=== PATIENT | female | born 1970 | race Caucasian/White ===

== ENCOUNTER 2017-08-16 11:34 | Emergency (ER) | payer BC ==
[2017-08-16 11:43] VITALS: TEMP 98.6
--- NOTE | 2017-08-16 12:54 | EDPHY ---
H & P Time Seen by Provider: 08/16/17 12:53 HPI/ROS: CHIEF COMPLAINT: Heavy period HISTORY OF PRESENT ILLNESS: This patient is a 47 year old female complaining of abnormally heavy menstrual bleeding beginning yesterday. She had an IUD in place for the past 10 years, which was recently removed 07/25/17. She had a two week long period after IUD removal and is now on low dose oral contraceptives. She has felt well and her menstruation started as expected with her placebo pills. Yesterday, she had increased menstrual bleeding. She has used one box of super tampons today since 9:00am. She is primarily concerned regarding the appearance of large clots and has never had heavy bleeding like today in the past. She denies any dizziness or weakness. No chest pain, shortness of breath, headache, or other associated symptoms. REVIEW OF SYSTEMS: A 10 point review of systems was performed and is negative with the exception of the elements mentioned in the history of present illness. Past Medical/Surgical History: Hypothyroid. Takes oral contraceptives. Social History: Just moved to [place] from [place]. Has three children. Nonsmoker. Smoking Status: Never smoked Physical Exam: General Appearance: Alert, pleasant Eyes: Pupils equal and round, no conjunctival pallor ENT, Mouth: Mucous membranes moist Neck: Normal inspection Respiratory: Lungs are clear to auscultation Cardiovascular: Regular rate and rhythm Gastrointestinal: Suprapubic tenderness. Abdomen is soft. Genitourinary: Blood and clots in the vaginal vault; after the clots were cleared away, she had minimal oozing of blood from the cervical os Neurological: A&O, nonfocal exam Skin: Warm and dry Extremities: Nontender, no pedal edema Psychiatric: Mood and affect normal Constitutional: Initial Vital Signs Temperature (C) 37.0 C 08/16/17 11:40 Heart Rate 85 08/16/17 11:40 Respiratory Rate 16 08/16/17 11:40 Blood Pressure 111/61 08/16/17 11:40 O2 Sat (%) 98 08/16/17 11:40 O2 Delivery Mode Room Air Allergies/Adverse Reactions: No Known Allergies Allergy (Unverified 08/16/17 11:39) Home Medications: Medication Instructions Recorded KLONOPIN 08/16/17 Levothyroxine 08/16/17 Ondansetron Odt [Zofran Odt 4 mg 4 mg PO Q4 PRN #6 tab 08/16/17 (*)] Medical Decision Making ED Course/Re-evaluation: 47 y/o female presents with abnormally heavy menstrual bleeding. VS stable, Hct ok and negative test. Exam reveals minimal oozing of blood from the cervical os. DUB, secondary to recent hormone changes. No evidence of serious hemorrhage. Plan to d/c home in good condition with instructions to increase her oral contraceptive dosing and then taper. Referral to local flight purser and primary care providers provided as the patient recently moved to [place]. Return precautions discussed. She is comfortable with this plan. Differential Diagnosis: includes though not limited to ectopic , miscarriage, severe anemia, hypotension - Data Points Laboratory Results: Laboratory Results 08/16/17 13:00 Departure - Departure Disposition: Home, Routine, Self-Care Clinical Impression: Dysfunctional uterine bleeding Condition: Good Instructions: Dysfunctional Uterine Bleeding (ED) Additional Instructions: Start your new pack of control pills today. Day 1-2: take 3 pills daily Day 3-4: take 2 pills daily Day 5-15: take 1 pill daily Day 18: start a new pack of control pills Referrals: Johanny Suárez MD [Medical Doctor] - As per Instructions Manuel Campbell DO [Medical Doctor] - As per Instructions Prescriptions: Ondansetron Odt [Zofran Odt 4 mg (*)] 4 mg PO Q4 PRN #6 tab PRN Reason: Nausea Report Scribed for: Chante Brown Report Scribed by: Magy Barba Date of Report: 08/16/17 Time of Report: 13:18 Physician Review and Approval Statement: 08/16/17 13:18 Portions of this note were transcribed by a director of medical services. I personally performed a history, physical exam, medical decision making, and confirmed accuracy of information the transcribed note.
[2017-08-16 13:07] LABS: PLATELET COUNT 280 10^3/uL (150-400)
[2017-08-16 14:03] VITALS: BP 112/67; PULSE 71; RESP 18; O2SAT 96
== END 2017-08-16 14:02 | disposition home or self-care (01) ==
DX: N93.8 Other specified abnormal uterine and vaginal bleeding (principal)

== ENCOUNTER → 2018-12-30 | Outpatient (CLI) | payer BC | LOC: FIMAGING 14:18 ==